=== PATIENT | male | born 1980 | race Caucasian/White ===

== ENCOUNTER 2018-10-19 14:19 | Emergency (ER) | payer OTHER ==
[2018-10-19 14:27] VITALS: BP 128/75
[2018-10-19] MEDS ORDERED: AMOX/CLAV 875 MG/125 MG TABLET PO STA (14:41)
--- NOTE | 2018-10-19 14:43 | ED Physician Documentation ---
PD HPI UPPER EXT INJURY - Stated complaint Stated Complaint: LT MIDDLE FINGER DOG BITE - Chief complaint Chief Complaint: Laceration - History obtained from History obtained from: Patient - History of Present Illness Location: Left, Finger (middle) Type of injury: Other (dog bite) Where injury occurred: Home Timing - onset: How many hours ago (1) Timing - duration: Hours (1) Timing - details: Abrupt onset Pain level max: 3 Pain level now: 3 Improved by: Rest Worsened by: Moving, Palpating Associated symptoms: No: Weakness, Numbness, Tingling Recently seen: Not recently seen Review of Systems Constitutional: denies: Fever, Chills Skin: denies: Rash PD PAST MEDICAL HISTORY - Past Medical History Past Medical History: No - Past Surgical History Past Surgical History: No - Present Medications Home Medications: Ambulatory Orders Medication Instructions Recorded Confirmed Amox/Clav 875/125 [Augmentin] 1 each PO Q12H #20 tablet 10/19/18 - Allergies Allergies/Adverse Reactions: Allergies Allergy/AdvReac Type Severity Reaction Status Date / Time No Known Drug Allergies Allergy Verified 10/19/18 14:27 - Living Situation Living Situation: reports: With family Living Arrangement: reports: At home - Family History Family history: reports: Non contributory - Immunizations Immunizations are current?: Yes Immunizations: TDAP current <10years PD ED PE NORMAL - Vitals Vital signs reviewed: Yes - General General: Alert and oriented X 3, No acute distress - HEENT HEENT: Moist mucous membranes - Neck Neck: Supple, no meningeal sign - Derm Derm: Warm and dry - Extremities Extremities: Other (L middle finger distal tip small bite to the lateral aspect. no nail involvement. ) - Neuro Neuro: Alert and oriented X 3 Results - Vitals Vitals: Vital Signs - 24 hr 10/19/18 14:26 Temperature 36.4 C L Heart Rate 59 L Respiratory 16 Rate Blood Pressure 128/75 O2 Saturation 99 Oxygen O2 Source Room air PD MEDICAL DECISION MAKING - ED course Complexity details: considered differential, d/w patient ED course: Dog bite to the L 3rd digit. will place on augment and follow up with PCP. Warnings of infection and instructions on wound care given at bedside. Also counseled on how to minimize scarring. Patient counseled regarding signs and symptoms for which I believe and urgent re-evaluation would be necessary. Patient with good understanding of and agreement to plan and is comfortable going home at this time This document was made in part using voice recognition software. While efforts are made to proofread this document, sound alike and grammatical errors may occur. Departure - Departure Disposition: 01 Home, Self Care Clinical Impression: Dog bite Qualifiers: Encounter type: initial encounter Qualified Code(s): W54.0XXA - Bitten by dog, initial encounter Condition: Good Instructions: ED Bite Animal General Follow-Up: your,doctor in 3 days for wound check [Other] Prescriptions: Amox/Clav 875/125 [Augmentin] 1 each PO Q12H #20 tablet Comments: Take all antibiotics until gone. Return if you worsen. Follow-up with your doctor for further care.
== END 2018-10-19 14:49 | disposition home or self-care (01) ==
LOC: ED 14:19
DX: S61.253A Open bite of left middle finger without damage to nail, initial encounter (principal); W54.0XXA Bitten by dog, initial encounter; Y92.009 Unspecified place in unspecified non-institutional (private) residence as the place of occurrence of the external cause
CPT/HCPCS: 99282; 99284; A9270

== ENCOUNTER 2019-08-31 14:11 | Outpatient (CLI) | payer OTHER ==
--- NOTE | 2019-08-31 16:03 | MRI Report ---
PROCEDURE: Lumbar Spine W/O INDICATIONS: LOW BACK PAIN TECHNIQUE: Noncontrast sagittal T1 spin echo and T2 fast echo, sagittal STIR, axial T1 and T2 fast spin echo thr ough the lumbar spine. In cases with scoliosis, additional coronal T2 fast spin echo may be performe d. COMPARISON: None. FINDINGS: Image quality: Excellent. Alignment and Curvature: There is normal bony alignment. Bone Marrow: No fracture. Scattered multilevel endplate spurring and diffuse facet arthropathy. Subce ntimeter T1 hypointense foci present in the right posteromedial ilium, nonspecific. Numerous Schmorl's nodes are present, with minimal adjacent marrow edema, seen at the inferior endpla te of L2, superior and inferior endplate of L3 and L4. Spinal Cord: Conus medullaris terminates at the L1-L2 level. Visualized cord demonstrates normal si gnal and size. Paraspinous Soft Tissues: No paravertebral masses. T12-L1: Normal in appearance. L1-L2: Normal in appearance. L2-L3: No canal stenosis. Mild bilateral foraminal narrowing.. L3-L4: No definite canal stenosis. Partial effacement of the left and right lateral recesses with s ymmetric appearance. Mild bilateral foraminal narrowing L4-L5: No high-grade canal stenosis. Lateral recesses appear grossly patent. Moderate left foramina l stenosis with nerve root compression. Mild to moderate right foraminal stenosis with nerve root com pression L5-S1: No canal stenosis. Lateral recess appear patent. Moderate right foraminal narrowing with ner ve root compression. Mild left foraminal stenosis IMPRESSION: Multilevel spondylosis and facet disease without high-grade canal narrowing. Diffuse bilateral foraminal stenoses most pronounced at L4-L5 and L5-S1 as above. Numerous Schmorl's nodes at the, L3 and level with minimal adjacent marrow edema. Reviewed by: Balaji Iyer MD on 08/31/2019 4:02 PM PDT Approved by: Balaji Iyer MD on 08/31/2019 4:02 PM PDT Station ID: [id number]
== END 2019-08-31 14:12 | disposition home or self-care (01) ==
LOC: DI 14:11
PROVIDERS: ATTEND Student in an Organized Health Care Education/Training Program
DX: M47.816 Spondylosis without myelopathy or radiculopathy, lumbar region (principal); M48.061 Spinal stenosis, lumbar region without neurogenic claudication; M48.07 Spinal stenosis, lumbosacral region; M51.46 Schmorl's nodes, lumbar region
CPT/HCPCS: 72148

== ENCOUNTER 2020-02-08 10:29 | Outpatient (CLI) | payer OTHER ==
--- NOTE | 2020-02-08 15:43 | MRI Report ---
PROCEDURE: Knee RT W/O INDICATIONS: MEDIAL MENISCAL TEAR TECHNIQUE: Noncontrast sagittal PD fast spin echo and T2 fast spin echo with fat saturation, sagittal 3-D gradie nt sequence with fat saturation; coronal T1 spin echo and PD fast spin echo with fat saturation, and axial PD fast spin echo with fat saturation through the knee. COMPARISON: None. FINDINGS: Image quality: Diagnostic. Menisci: There is an inferior flap tear involving the body and posterior horn of the medial meniscus with a small flap demonstrating slight extrusion into the medial gutter. There is also mild radial t earing along the free edge in the body and posterior horn. The lateral meniscus appears intact. The m eniscal root ligaments appear intact. Cruciate ligaments: The anterior and posterior cruciate ligaments appear intact. Medial structures: The medial collateral ligament appears intact. The semimembranosus tendon insert ions appear intact. Visualized portions of the pes anserinus tendons appear normal. No abnormal bur gerardo fluid. Lateral structures: The fibular collateral ligament and biceps femoris tendon appear intact. The po pliteal tendon and the meniscofemoral ligaments appear intact. Anterior structures: The quadriceps and patellar tendons appear intact. Patellar alignment is jacquelyn l. No femoral trochlear dysplasia or ventral trochlear prominence. Bones and cartilage: No bone marrow contusions or fractures. 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 There is mild cartilage thinning peripherally in the medial compartment. The articular cartilage in the lateral compartment appears preserved. In the patellofemoral compartme nt, there is also mild cartilage thinning with superficial chondral fissuring along the medial patell ar facet. Joint space: There is a small joint effusion. No White?s cyst. Normal appearing synovial plicae are incidentally noted. IMPRESSION: 1. Bipartite patella with bone marrow edema in the superolateral accessory fragment as well as along its interface with the remainder of the patella suggestive of a symptomatic bipartite patella. 2. Tearing in the body and posterior horn of the medial meniscus as described. 3. Small joint effusion. 4. Mild chondral degeneration. Reviewed by: Sae Knowles MD on 02/08/2020 3:41 PM PST Approved by: Sae Knowles MD on 02/08/2020 3:41 PM PST Station ID: [id number]
== END 2020-02-08 10:30 | disposition home or self-care (01) ==
LOC: DI 10:29
PROVIDERS: ATTEND Orthopaedic Surgery
DX: S83.241A Other tear of medial meniscus, current injury, right knee, initial encounter (principal); Q74.1 Congenital malformation of knee

== ENCOUNTER 2020-05-25 06:18 | Day surgery (SDC) | payer OTHER ==
[2020-05-25] MEDS ORDERED: LACTATED RINGERS 1,000 ML IV ONE ×2 (06:33→09:10)
[2020-05-25] MEDS ORDERED: ceFAZolin 2 GM/50 ML 2 GM/50 ML BAG IV ONE (06:33)
[2020-05-25] MEDS ORDERED: ePHEDrine 50 MG/ML VIAL IVP PRN (07:05)
[2020-05-25] MEDS ORDERED: NALOXONE 0.4 MG/ML VIAL IVP PRN (07:05)
[2020-05-25] MEDS ORDERED: HYDROmorphone 0.5 MG/0.5 ML SYRINGE IVP PRN (07:05)
[2020-05-25] MEDS ORDERED: METOCLOPRAMIDE 10 MG/2 ML VIAL IVP PRN (07:05)
[2020-05-25] MEDS ORDERED: MORPHINE 2 MG/ML CARPUJECT IVP PRN (07:05)
[2020-05-25] MEDS ORDERED: ONDANSETRON 4 MG/2 ML VIAL IVP PRN ×2 (07:05→09:29)
[2020-05-25] MEDS ORDERED: fentaNYL 100 MCG/2 ML VIAL IVP PRN (07:05)
[2020-05-25] MEDS ORDERED: ATROPINE ABBOJECT 1 MG/10 ML SYRINGE IVP PRN (07:05)
--- NOTE | 2020-05-25 07:05 | ANESTHESIA ---
Pre-Anesthesia VS, & Labs - Diagnosis right knee medial meniscal tear - Procedure right knee arthroscopy, Medial meniscectomy Vital Signs: Temp Pulse Resp BP Pulse Ox 36.3 C L 47 L 16 124/77 98 05/25/20 06:34 05/25/20 06:34 05/25/20 06:34 05/25/20 06:34 05/25/20 06:34 Height: 5 ft 10 in Weight (kg): 85.6 kg Body Mass Index: 27.1 BMI Classification: Overweight - NPO >8 hours - Lab Results Lab results reviewed: Yes Home Medications and Allergies Home Medications: Ambulatory Orders No Known Home Medications 05/21/20 No Known Home Medications 05/21/20 Allergies/Adverse Reactions: Allergies Allergy/AdvReac Type Severity Reaction Status Date / Time No Known Drug Allergies Allergy Verified 05/25/20 06:33 Anes History & Medical History - Anesthetic History Anesthesia Complications: reports: No previous complications Family history of Anesthesia Complications: Denies Family history of Malignant Hyperthermia: Denies - Medical History Cardiovascular: reports: None Pulmonary: reports: None Gastrointestinal: reports: None Urinary: reports: None Musculoskeletal: reports: Other Endocrine/Autoimmune: reports: None Skin: reports: None - Surgical History Neurologic: reports: Craniotomy (Subdural hematoma evacuation at 10 yo.), Other Exam General: Alert, Oriented x3, Cooperative, No acute distress Dental: WNL Mouth Openin Fingerbreadth Neck Mobility: Normal Mallampati classification: I Respiratory: Lungs clear, Normal breath sounds, No respiratory distress, No accessory muscle use Cardiovascular: Regular rate, Normal S1, Normal S2, No murmurs Plan Anesthesia Type: General, Adductor Block Regional Block: Per Surgeon's request for Post Op pain control Consent for Procedure(s) Verified and Reviewed: Yes Code Status: Attempt Resuscitation ASA classification: 1-Healthy patient Is this case an emergency?: No
[2020-05-25] MEDS ORDERED: EPINEPHrine 1 MG/ML AMP ONE (07:12)
[2020-05-25] MEDS ORDERED: KETOROLAC 30 MG/ML VIAL ONE (07:15)
[2020-05-25] MEDS ORDERED: ROCURONIUM 50 MG/5 ML VIAL ONE (07:15)
[2020-05-25] MEDS ORDERED: DEXAMETHASONE 4 MG/ML VIAL ONE (07:15)
[2020-05-25] MEDS ORDERED: LIDOCAINE-PF 2% 10 ML AMP SUBQ ONE (07:15)
[2020-05-25] MEDS ORDERED: ONDANSETRON 4 MG/2 ML VIAL ONE (07:15)
[2020-05-25] MEDS ORDERED: ROPIVACAINE 0.5% PF 20 ML AMPULE ONE (07:15)
[2020-05-25] MEDS ORDERED: DEXMEDETOMIDINE 200 MCG/2 ML VIAL ONE (07:15)
[2020-05-25] MEDS ORDERED: SUGAMMADEX 200 MG/2 ML VIAL IVP ONE (07:15)
[2020-05-25] MEDS ORDERED: PROPOFOL 200 MG/20 ML VIAL IVP ONE (07:15)
[2020-05-25] MEDS ORDERED: MIDAZOLAM 2 MG/2 ML VIAL ONE (07:22)
[2020-05-25] MEDS ORDERED: fentaNYL 100 MCG/2 ML VIAL ONE (07:22)
[2020-05-25] MEDS ORDERED: LIDOCAINE 2%-EPI 1:100000 20 ML MDV ONE (07:50)
[2020-05-25] MEDS ORDERED: EPINEPHrine 1 MG/ML AMP IR ONE (07:58)
[2020-05-25] MEDS ORDERED: LACTATED RINGERS 1,000 ML IV SCH (08:00)
[2020-05-25] MEDS ORDERED: LIDOCAINE 2%-EPI 1:100000 20 ML MDV SUBQ ONE ×2 (08:01)
[2020-05-25] MEDS ORDERED: BUPIVACAINE 0.25% PF 30 ML VIAL SUBQ ONE ×2 (08:52)
[2020-05-25] MEDS ORDERED: BUPIVACAINE 0.5% PF 30 ML VIAL ONE (09:02)
[2020-05-25] MEDS ORDERED: BUPIVACAINE 0.25% PF 30 ML VIAL ONE (09:02)
[2020-05-25] MEDS ORDERED: oxyCODONE 5 MG TABLET PO PRN (09:29)
--- NOTE | 2020-05-25 09:30 | ANESTHESIA POST OP EVALUATION ---
Anesthesia Post Eval - Post Anesthesia Eval Vitals: Last Vital Signs Temp 36.4 C L 05/25/20 09:10 Pulse 64 05/25/20 09:25 Resp 21 05/25/20 09:25 BP 108/77 05/25/20 09:25 Pulse Ox 96 05/25/20 09:25 CV Function Including HR & BP: positive: Stable Pain Control: positive: Satisfactory Nausea & Vomiting: positive: Negative Mental Status: positive: Baseline Respiratory Status: Airway Patent Hydration Status: Satisfactory Anesthesia Complications: positive: None
--- NOTE | 2020-05-25 09:50 | OPERATIVE REPORT ---
Operative Report - General Procedure Date: 05/25/20 - Procedure Note Anesthesia Technique: General ET tube, Regional block - Other Other Information/Narrative: Date of Procedure: 25 May 2020 Planned Procedure: Right knee arthroscopy, medial meniscus debridement versus repair Pre-op diagnosis: Right knee posterior horn medial meniscal tear Procedure performed: Right knee arthroscopy, medial meniscus debridement, lateral meniscus debridement, medial plica resection, shaving chondroplasty trochlea Post-op diagnosis: Right knee posterior horn medial meniscus tear, inner rim lateral body meniscal tear, pathologic medial plica, trochlear chondromalacia Primary Surgeon: JONAH MELENDEZ Secondary Surgeon: Jaspreet Anesthesia: General endotracheal anesthesia with right adductor canal regional block EBL: 25 ml Tourniquet: Placed but not inflated Arthroscopic findings right knee: 1. Patella: Mild degenerative changes primarily of the superior patella, median ridge, and medial patella 2. Trochlea: There is an approximately 10 mm proximal to distal, by 5 mm medial to lateral near full-thickness chondral lesion, on the lateral edge, the tissue was undermined and of not normal consistency suggesting remote injury with some degree of synovial position and fibrocartilage formation. There were 2 flaps that were grossly unstable to probing. An anterior superior medial portal was created using needle localization to assist with debridement. The cartilage and soft tissue in the trochlear lesion were debrided with a combination of the arthroscopic sucker shaver and meniscal biters until a stable rim was achieved. Following debridement, the area measured 10 mm x 5 mm as above. 3. Medial Compartment: Degenerative tear of the posterior horn and body of the medial meniscus. This was debrided with the arthroscopic sucker shaver and meniscal biters to a stable rim. The tear ended several millimeters from the medial meniscal root, which was intact. The medial femoral condyle cartilage was generally normal, there was some scattered degenerative changes to the medial tibial cartilage with mild superficial fraying. A prominent medial plica was observed, which on knee motion became entrapped in the medial portion of the patellofemoral articulation, this may be what was contributing to some of the degenerative changes observed on the medial facet of the patella. This was resected back to the level of the joint capsule using the arthroscopic sucker shaver and meniscal biters. 4. Lateral Compartment: The inner rim of the lateral meniscus was frayed and degenerated, this was debrided to a stable rim using the arthroscopic sucker shaver and the meniscal biters. There was some mild fraying at the posterior root, however the root was stable to probing. The lateral femoral condyle cartilage appeared generally normal. There was some softening, fraying and wear of the lateral tibial cartilage. 5. ACL and PCL: ACL intact, with some mild fraying, PCL intact. COMPLICATIONS: none IMPLANTS: None Indications for surgery: 40-year-old male with on again off again pain in the right knee that was recently exacerbated approximately 5 months ago and has remained symptomatic since that time. Exam and MRI was most consistent with a symptomatic posterior horn medial meniscal tear and possible symptomatic medial plica. He had failed appropriate nonoperative management. The risks, benefits, and alternatives were discussed. Risks include pain, bleeding, infection, damage to nearby structures and cartilage, lack of symptom relief, need for further surgery, DVT, PE, stroke, heart attack and . Written consent was obtained. Procedure Details: The patient was met in the pre-operative hold area. Persistence of symptoms and consent was verified. The patient verified the surgical site as the right knee. The operative knee was initialed per our standard protocol using surgical marker. The patient then met with anesthesia, a regional block was placed, and was brought back to the operating room. The patient was placed supine on the operating table. A general anesthetic was administered and an endotracheal tube was placed. A well-padded tourniquet was placed on the right thigh. Following tourniquet placement, the right lower extremity was then prepped and draped in the usual sterile fashion. A surgical timeout was performed, verifying the correct patient, the correct procedure and surgical site. We confirmed that perioperative antibiotics had been administered. Everyone agreed to proceed. Following timeout, 15 mL of 2% lidocaine with epinephrine were injected into the planned portal sites, and then and 11 blade scalpel was used to make an anterolateral arthroscopic portal, the anteromedial was created using needle localization and direct visualization. The arthroscope was introduced into the knee and a diagnostic arthroscopy was performed with the above-stated findings. A limited debridement of the anterior fat pad was performed to improve visualization. Once in the medial compartment, a degenerative tear of the posterior horn and body of the medial meniscus was observed, as described above. The arthroscopic biters and the sucker shaver were used to debride the torn meniscal tissue and debride the meniscus back to a stable rim. The arthroscopic probe was used to ensure that the remaining meniscal tissue was stable. Entering the lateral compartment, the free edge of the lateral meniscus was degenerative and frayed, and it it to was debrided and gently contoured using the arthroscopic sucker shaver and meniscal biters. Following debridement it was stable to probing. Next turned my attention to the trochlear lesion, and using a combination of the arthroscopic sucker shaver and meniscal biters were used to perform a shaving chondroplasty from the area of trochlear chondromalacia. An anterior superior medial portal was created using needle localization to facilitate appropriate triangulation to the trochlear lesion and correct angle of approach for chondroplasty. Following chondroplasty, the surrounding cartilage was probed and found to be stable. Finally, the arthroscopic sucker shaver and meniscal biters were used to debride the prominent medial plica back to the level of the joint capsule. The arthroscopic instruments were then removed from the knee. The arthroscopic fluid was drained from the knee. The portals were closed with 3-0 Monocryl. The anterior superomedial portal was oversewn using 3-0 nylon in mattress fashion. 10 mL 0.25% Marcaine plain was injected into the periarticular and periincisional soft tissues. The incisions were dressed with Xeroform gauze, 4x4 gauze, an ABD and ANGELA stocking. The surgical drapes were removed. The patient was awoken from anesthesia, transferred to the hospital bed, and taken to the PACU for recovery in good condition. Postoperative plan: 1. Discharge home from the same day surgery facility once the patient has met discharge criteria. 2. Advance weightbearing as tolerated, range of motion as tolerated, and wean from crutches as tolerated as gait normalizes. 3. Return to clinic in 10-14 days for wound check and suture removal. Will start formal PT at that time. 4. Allow advancement of activities as tolerated with full clearance for all activities anticipated in 6-8 weeks postoperatively. 5. ANGELA hose and one full-strength aspirin daily for DVT prophylaxis
[2020-05-25 10:35] VITALS: BP 110/64
== END 2020-05-25 06:19 | disposition home or self-care (01) ==
LOC: SDS 06:18
PROVIDERS: ATTEND Orthopaedic Surgery
DX: S83.241A Other tear of medial meniscus, current injury, right knee, initial encounter (principal); S83.281A Other tear of lateral meniscus, current injury, right knee, initial encounter; M67.51 Plica syndrome, right knee; M94.261 Chondromalacia, right knee; M16.11 Unilateral primary osteoarthritis, right hip; E66.3 Overweight; Z68.27 Body mass index [BMI] 27.0-27.9, adult
CPT/HCPCS: 29880; J0690; J7120

== ENCOUNTER 2021-12-06 14:46 | Outpatient (CLI) | payer OTHER ==
--- NOTE | 2021-12-10 14:37 | Ultrasound Report ---
PROCEDURE: Duplex Upr Ext Arterial Bilat INDICATIONS: ANESTHESIA OF SKIN TECHNIQUE: Color and pulse Doppler interrogation was performed of both upper extremity arterial systems, with im age documentation. COMPARISON: None. FINDINGS: Right upper extremity subclavian vein artery: Restin.8 cm/s supraclavicular, with triphasic flow. 93.2 cm/s infraclavicular, with triphasic fl ow. Arm 90 degree out in front/at attension: 101.7 cm/s supraclavicular, with biphasic flow. 123 cm/s inf raclavicular with biphasic flow. Biceps flexed: 116.2 cm/s supraclavicular with triphasic flow. 75.6 cm/s infraclavicular with triphas ic flow. Portion wall and 90 degrees: 66.4 cm/s supraclavicular with triphasic flow. 81.6 cm/s infraclavicular with triphasic flow. Left upper extremity subclavian artery: Restin.6 cm/s supraclavicular, with triphasic flow. 95.1 cm/s infraclavicular, with triphasic fl ow. Arm 90 degree out in front/at attention: 57 cm/s supraclavicular, with triphasic flow. 60.9 cm/s infr aclavicular with biphasic flow. Biceps flexed: 78.3 cm/s supraclavicular with triphasic flow. 84.1 cm/s infraclavicular with triphasi c flow. Portion wall and 90 degrees: 118 cm/s supraclavicular with triphasic flow. 90.4 cm/s infraclavicular with triphasic flow. IMPRESSION: Significant velocity change in left subclavian artery moving from resting to arm and 90 degree forwar d concerning for proximal compression although no definite narrowing is identified during this study. If indicated, angiogram of left arm can be done for further evaluation of possible thoracic outlet s yndrome. Reviewed by: Tony Zee MD on 12/10/2021 2:35 PM PDT Approved by: Tony Zee MD on 12/10/2021 2:35 PM PDT Station ID: [id number]
== END 2021-12-06 14:47 | disposition home or self-care (01) ==
LOC: DI 14:46
PROVIDERS: ATTEND Nurse Practitioner Family
DX: R20.0 Anesthesia of skin (principal)
CPT/HCPCS: 93930; 93970